=== PATIENT | female | born 1990 | race Caucasian/White ===

== ENCOUNTER 2018-01-19 18:21 | Inpatient (IN) | payer OTHER ==
[2018-01-19] MEDS: LACTATED RINGER'S 1000 ML IV (18:46)
[2018-01-19] MEDS ORDERED: LR 1,000 ML IV (18:46)
[2018-01-19] MEDS ORDERED: OXYTOCIN 30 UNITS IN 0.9% NaCl 500ML IV BAG (J2590) As Ordered (18:57)
[2018-01-19 19:06] LABS: HEMATOCRIT 40.2 % (36.0-47.0); HEMOGLOBIN 13.6 g/dl (12.0-15.5); MEAN CORPUSCULAR HGB CONC 33.8 g/dl (32.0-36.5); MEAN CORPUSCULAR VOLUME 94.6 fl (80.0-96.0); PLATELET COUNT, AUTOMATED 197 10^3/uL (150-450); RED BLOOD COUNT 4.25 10^6/uL (4.00-5.40); RED CELL DISTRIBUTION WIDTH 13.2 % (11.5-14.5); WHITE BLOOD COUNT 17.1 10^3/uL (4.0-10.0)
[2018-01-19] MEDS: OXYTOCIN DRIP 30 UNITS in APPROPRIATE DILUENT 1 EA IV (20:02)
[2018-01-19] MEDS ORDERED: METOCLOPRAMIDE INJ 10MG/2ML VIAL (J2765) IV (20:15)
[2018-01-19] MEDS ORDERED: DIBUCAINE 1% OINTMENT 30GM TOP (20:15)
[2018-01-19] MEDS: DOCUSATE SODIUM 100 MG CAP PO (21:00)
[2018-01-20] MEDS: IBUPROFEN 800 MG TAB PO ×3 (00:50→14:44)
[2018-01-20] MEDS: RHOGAM 300 MCG (1500 IU) INJ (J2790) IM (07:33)
[2018-01-20] MEDS: PRENATAL VITAMINS CHEWABLE TABLET PO (07:33)
[2018-01-20] MEDS: MEASLES,MUMPS,RUBELLA VACCINE INJ (MMR-II) (90707) SC (07:33)
[2018-01-20] MEDS: DOCUSATE SODIUM 100 MG CAP PO ×2 (07:33→19:52)
[2018-01-20] MEDS: ACETAMINOPHEN TAB 650MG DOSE (2X325MG) PO (19:52)
[2018-01-21] MEDS: IBUPROFEN 800 MG TAB PO (00:35)
[2018-01-21] MEDS: PRENATAL VITAMINS CHEWABLE TABLET PO (07:39)
[2018-01-21] MEDS: DOCUSATE SODIUM 100 MG CAP PO (07:39)
[2018-01-21] MEDS: INFLUENZA QUADRIVALENT PF VACCINE 0.5ML SYRINGE (90686) IM (09:18)
== END 2018-01-21 11:30 | disposition home or self-care (01) | DRG 807 ==
LOC: M LDO 18:21 → M LDI 18:47 → M OBS 21:09
PROVIDERS: Obstetrics & Gynecology
PROC: 10E0XZZ Delivery of Products of Conception, External Approach (ICD-10-PCS; principal; 2018-01-19)
PROC: 10907ZC Drainage of Amniotic Fluid, Therapeutic from Products of Conception, Via Natural or Artificial Opening (ICD-10-PCS; 2018-01-19)
DX: O80 Encounter for full-term uncomplicated delivery (principal); Z37.0 Single live birth; Z3A.39 39 weeks gestation of pregnancy

== ENCOUNTER → 2018-02-07 | Outpatient (CLI) | payer OTHER | LOC: M RAD 13:40 | DX: N63.11 Unspecified lump in the right breast, upper outer quadrant (principal) | CPT/HCPCS: 76642 ==